=== PATIENT | male | born 1980 | race Asian ===

== ENCOUNTER 2022-03-20 13:28 | Emergency (ER) | payer BC ==
[~2022-03-20] VITALS: Ht 172.7 cm; Wt 98.4 kg
[2022-03-20 14:19] LABS: PLATELET COUNT 208 K/uL (142-355)
[2022-03-20 14:39] LABS: POTASSIUM 3.5 mmol/L (3.6-5.2)
[2022-03-20 14:44] LABS: PARTIAL THROMBOPLASTIN TIME 24.9 SECONDS (24.5-33.6)
[2022-03-20 19:10] VITALS: BP 198/126; TEMP 98
== END 2022-03-20 19:10 | disposition home or self-care (01) ==
LOC: ED 13:28
PROVIDERS: Emergency Medicine
DX: R42 Dizziness and giddiness (principal)
CPT/HCPCS: 80053; 80307; 81002; 84484; 85027; 85610; 85730; 93005; 99283